=== PATIENT | male | born 1945 | race Caucasian/White ===

== ENCOUNTER 2022-10-11 07:07 | Day surgery (SDC) | payer OTHER, SELFPAY ==
--- NOTE | 2022-10-10 11:28 | P.CONAN_ITS ---
HPI - Anesthesia Eval Consult details Narrative: 77yo M for Colonoscopy [facility] Past Medical History Medical History (Updated 10/11/22 @ 07:23 by Patricia Orozco RN) Allergic rhinitis Diabetes Elevated cholesterol Glaucoma HTN (hypertension) Surgical History Surgical History (Updated 10/11/22 @ 07:23 by Patricia Orozco, RN) History of appendectomy History of surgery of head Hx of colonoscopy Hx of hemorrhoidectomy Social History Social History Patient Tobacco Use Status: Former Tobacco user Use of substances other than those prescribed or required for medical reasons: No Are you DNR?: No Advance Directives: No Advance Directives Information Provided: Yes Meds Allergies Allergy/AdvReac Type Severity Reaction Status Date / Time phenytoin [Dilantin] Allergy Unknown Dizziness Verified 10/11/22 07:22 gemfibrozil [From Lopid] Allergy Unknown Verified 10/10/22 07:06 glipizide Allergy Diarrhea Verified 10/11/22 07:22 simvastatin Allergy Unknown Verified 10/10/22 07:06 verapamil Allergy Unknown Verified 10/10/22 07:06 Home Medications Medication Instructions Recorded Confirmed Last Taken Type amlodipine PO DAILY 10/10/22 10/11/22 History aspirin 81 mg tablet 81 mg PO DAILY 10/10/22 10/10/22 Unknown History atenolol PO DAILY 10/10/22 10/11/22 History atorvastatin PO DAILY 10/10/22 Unknown History fluticasone propionate See Rx Instructions .Route .COMPLEX 10/10/22 10/10/22 Unknown History ibuprofen 200 mg tablet (Motrin IB) 200 mg PO Q6H PRN Pain 10/10/22 10/10/22 Unknown History latanoprost 0.005 % eye drops 1 drp ophthalmic (eye) DAILY 10/10/22 10/10/22 Unknown History (Xalatan) loratadine PO DAILY 10/10/22 Unknown History multivitamin 1 tab PO DAILY 10/10/22 10/10/22 Unknown History omeprazole PO DAILY 10/10/22 10/11/22 History sildenafil PO 10/10/22 Unknown History Exam Exam Date and Time: October 10, 2022 112 Assessment and Plan Assessment Anesthesia Assessment: Chart Reviewed
[2022-10-11 07:23] VITALS: BMI 25.2
[2022-10-11 07:40] VITALS: BP 150/77; PULSE 71; RESP 16; TEMP 36.7; O2SAT 97
[2022-10-11 07:48] LABS: Glucose, Whole Blood 128 mg/dL (60-115)
[2022-10-11] MEDS: Lactated Ringers 1,000 ML 100 ML IVCONT (07:59)
[2022-10-11 09:10] VITALS: BP 104/59; PULSE 75; RESP 16; TEMP 36.4; O2SAT 98
--- NOTE | 2022-10-11 09:14 | P.BOP_ITS ---
Brief Operative Note Date of Service: 10/11/22 Pre-op diagnosis: Heme + stool Post-op diagnosis: other (Diverticulosis) Procedure: Colonoscopy to the cecum and TI Surgeon: Angelito Clancy Anesthesia: MAC Was an Railroad Brakeman used for this Procedure?: No Estimated blood loss (mL): 0 Pathology: none sent Condition: stable Disposition: PACU
[2022-10-11 09:25] VITALS: BP 104/59; PULSE 73; RESP 18; O2SAT 98
--- NOTE | 2022-10-11 09:32 | OP_ITS ---
DATE OF SERVICE: 10/11/2022 SURGEON: Angelito Clancy MD INDICATIONS: The patient presents for evaluation of heme-positive stool and personal history of tubular adenoma of the colon. Full consent has been obtained from him for this, including risks of bleeding and perforation. PREOPERATIVE DIAGNOSIS: POSTOPERATIVE DIAGNOSIS: PROCEDURE PERFORMED: Colonoscopy to the cecum and terminal ileum. ESTIMATED BLOOD LOSS: COMPLICATIONS: ANESTHESIA: Monitored anesthesia care. ASSISTANTS: SPECIMENS: PREOPERATIVE DIAGNOSES: Heme-positive stool and personal history of colon polyps. POSTOPERATIVE DIAGNOSES: Heme-positive stool and personal history of colon polyps, diverticulosis, and internal hemorrhoids. DESCRIPTION OF PROCEDURE: The patient was placed in the left lateral decubitus position. The digital rectal exam revealed some small external hemorrhoids. The Olympus video pediatric colonoscope was entered into the rectum and advanced easily to the cecum. Once in the cecum, I did identify normal-appearing cecal pouch with appendiceal orifice and a normal-appearing ileocecal valve. The terminal ileum was cannulated and appeared normal. The scope was withdrawn back in the colon. The entire cecum and ileocecal valve appeared normal. The scope was slowly withdrawn assessing all mucosal surfaces carefully. Preparation was excellent. I did not visualize any sign of polyps, colitis, nor angiodysplasia. There was a mild amount of sigmoid diverticulosis. In the rectum, scope was retroflexed visualizing internal hemorrhoids, but no other pathology. The rectal mucosa appeared normal. The scope was straightened and withdrawn from the patient. He tolerated the procedure well and was returned to the recovery area in stable condition. IMPRESSION: 1. Diverticulosis. 2. Small internal and external hemorrhoids. PLAN: Given today's negative exam and his age, I do not think he would need any further screening colonoscopies. He will otherwise see me on a p.r.n. basis. MD LIVIA Miranda/FER / [phone] JUSTINO
[2022-10-11 09:43] VITALS: BP 113/64; PULSE 70; RESP 18; TEMP 36.4; O2SAT 98
== END 2022-10-11 10:49 | disposition home or self-care (01) ==
PROVIDERS: PCP Internal Medicine; Visit Provider Internal Medicine
PROC: 0DJD8ZZ Inspection of Lower Intestinal Tract, Via Natural or Artificial Opening Endoscopic (ICD-10-PCS; CPT 45378; principal; 2022-10-11 08:20)
DX: R19.5 Other fecal abnormalities (principal); K57.30 Diverticulosis of large intestine without perforation or abscess without bleeding; K64.8 Other hemorrhoids; Z86.010 Personal history of colon polyps; I10 Essential (primary) hypertension; E11.9 Type 2 diabetes mellitus without complications; Z79.82 Long term (current) use of aspirin; Z79.899 Other long term (current) drug therapy
CPT/HCPCS: 45378; 82947; J2250

== ENCOUNTER 2025-01-20 17:04 | Emergency (ER) | payer OTHER, SELFPAY ==
--- NOTE | ~2025-01-20 | XR_ITS ---
CLINICAL HISTORY: open wound. warmth. osteo? Two views of the left tibia and fibula. COMPARISON: None FINDINGS: Soft tissue edema overlying the left lower leg. Tibia and fibula appear intact. Visualized portions of the left knee and ankle appear intact. No lytic or sclerotic lesion. No periostitis. No cortical erosion. IMPRESSION: 1. Soft tissue edema overlying the left lower leg. No radiopaque foreign body. No radiographic evidence of osteomyelitis. This document has been electronically signed by: Ata Baltazar MD on 01/20/2025 18:21:20
--- NOTE | ~2025-01-20 | US_ITS ---
CLINICAL HISTORY: left leg swelling. DVT Venous duplex ultrasound left lower extremity COMPARISON: None provided. FINDINGS: The visualized deep veins are fully compressible with normal Doppler color flow and spectral tracings. No popliteal cyst. IMPRESSION: 1. Negative for left lower extremity deep vein thrombosis. This document has been electronically signed by: Ata Baltaazr MD on 01/20/2025 20:18:50
[2025-01-20 17:25] VITALS: BP 145/63; PULSE 95; RESP 20; TEMP 37; O2SAT 97; BMI 28.4
--- NOTE | 2025-01-20 17:37 | ED_ITS ---
HPI - General Adult General Chief complaint: Wound/Laceration Stated complaint: left leg swollen/wound weeping on the calf Time Seen by Provider: 01/20/25 22:27 Source: patient, family (daughter), RN notes reviewed and old records reviewed Mode of arrival: ambulatory Limitations: no limitations History of Present Illness ED Provider: Jose HPI narrative: 79-year-old male past medical history significant for diabetes, hypertension, hyperlipidemia presents for evaluation of left leg swelling. Patient reports that approximately 1 month ago he sustained a laceration to his left arndt on a tiger obdulia while working in his garden. He reports that it seemed to heal quite well About 10 days ago he had a routine [facility] and a nurse look at the area inside it seemed to be healing well. However since then ?the scab fell off. He reports that the left leg has been getting progressively more swollen with some purulent drainage weeping from it. He denies any fevers or chills He reports 0/10 pain at rest in 1/10 pain when he is walking or pushing in the area Related Data Home Medications ?Medication ?Instructions ?Recorded ?Confirmed amlodipine PO DAILY 10/10/22 aspirin 81 mg tablet 81 mg PO DAILY 10/10/2209/15 atenolol PO DAILY 10/10/22 atorvastatin PO DAILY 10/10/22 fluticasone propionate See Rx Instructions .Route . COMPLEX 10/10/22 10/10/22 ibuprofen 200 mg tablet (Motrin IB) 200 mg PO Q6H PRN Pain 10/10/22 10/10/22 latanoprost 0.005 % eye drops 1 drp ophthalmic (eye) D AILY 10/10/22 10/10/22 (Xalatan) loratadine PO DAILY 10/10/22 multivitamin 1 tab PO DAILY 10/10/2209/15 omeprazole PO DAILY 10/10/22 sildenafil PO 10/10/22 Previous Rx's ?Medication ?Instructions ?Recorded cephalexin 500 mg tablet 500 mg PO QID #28 tabs 01/20 doxycycline hyclate 100 mg tablet 100 mg PO BID #14 ta bs 01/20/25 Allergies Allergy/AdvReac Type Severity Reaction Status Date / Time phenytoin (Dilantin) Allergy Unknown Dizziness Verified 01/20/25 17:26 gemfibrozil (From Lopid) Allergy Unknown Verified 01/20/25 17:26 glipizide Allergy Diarrhea Verified 01/20/25 17:26 simvastatin Allergy Unknown Verified 01/20/25 17:26 verapamil Allergy Unknown Verified 01/20/25 17:26 Review of Systems 2 Constitutional: Constitutional: Denies body ache(s), Denies chills, Denies fever(s) and Denies headache(s) Eyes: Eyes: Denies blurry vision ENT: Denies vertigo, Denies dizziness and Denies headache(s) Cardiovascular: Cardiovascular: Denies chest pain and Denies dyspnea Respiratory: Respiratory: Denies cough and Denies dyspnea Gastrointestinal: Gastrointestinal: Denies abdominal pain Musculoskeletal: Musculoskeletal: Denies arthralgias, Denies joint swelling and Denies limited range of motion Integumentary/Breasts: Skin/Breast: Reports erythema, Reports skin swelling and Reports wounds Neurologic: Denies vertigo, Denies dizziness and Denies headache(s) [facility] Past Medical History Medical History (Updated 01/21/25 @ 00:00 by Raina Teresa) Glaucoma Allergic rhinitis Elevated cholesterol HTN (hypertension) Diabetes Surgical History (Updated 10/11/22 @ 07:23 by Patricia Orozco RN) History of appendectomy History of surgery of head Hx of hemorrhoidectomy Hx of colonoscopy Social History Social History Alcohol intake: current Alcohol intake frequency: a few times a week Alcohol type: beer Patient Tobacco Use Status: Former Tobacco user Smoked in Last 30 Days: No Use of substances other than those prescribed or required for medical reasons: No Advance Directives: No Advance Directives Information Provided: No Physical Exam ED Vital Signs: Vital Signs - 24 hr 01/20/25 22:57 01/20/25 23:53 Temperature 98.4 F 98.4 F Pulse Rate 81 81 Respiratory Rate 15 15 Blood Pressure 146/86 H 146/86 H Pulse Oximetry 98 98 Oxygen Delivery Method Room Air Room Air BMI result Body Mass Index 28.4 Const General: healthy appearing, comfortable, no acute distress, alert and awake Nutritional Appearance: well nourished Orientation/consciousness: patient oriented x3 HENMT Head: Yes normocephalic and Yes atraumatic Eyes Eyelids: Yes eyelids normal Conjunctivae: conjunctivae normal Sclerae: sclerae normal Corneas: corneas normal Pupils: Equal, round and reactive pupils present EOM: EOMs intact bilaterally Neck Neck: Yes full ROM Resp Effort & Inspection: normal respiratory effort, able to speak in complete sentences and not labored Skin Other: The patient has mild edema of the left lower extremity [id number] to about the ankle. There is a he is feeling, 3 cm linear laceration to the center of the arndt oriented vertically. There is some surrounding erythema with increased warmth to the area. No fluctuance General skin exam: elasticity normal Neuro General: patient oriented x3 Cranial nerves: Yes Equal, round and reactive pupils present and Yes Bilaterally intact EOM present Cognition (Neuro): normal cognition Extrem Other: Moving all extremities well without any obvious deformities Course Course Course Narrative: RME: 79 year male history of diabetes presents to ED for left leg swelling open wound with pus drainage warmth and tenderness for couple of weeks. Patient states he was gardening and cut his arndt in the garden since then infection absent getting worse. Patient presents to ED for evaluation. Positive for leg swelling, whooping wound and warmth. Labs x-ray ultrasound ordered Medications Administered Discontinued Medications Generic Name Dose Route Start Last Admin Trade Name Surjitq PRN Reason Stop Dose Admin Cephalexin HCl 500 mg 01/20/25 23:30 01/20/25 23:48 Cephalexin 500 Mg Capsule PO 01/20/25 23:31 500 mg ONCE ONE Administration Doxycycline Monohydrate 100 mg 01/20/25 23:30 01/20/25 23:48 Doxycycline Monohydrate 100 Mg Capsule PO 01/20/25 23:31 100 mg ONCE ONE Administration Medical Decision Making Medical Decision Making [facility] Narrative: 79-year-old male past medical history as above presents for evaluation of left leg redness, swelling and pain. He has not had any fevers. An ultrasound was ordered that is negative for DVT. The patient's labs are significant for a mild pancytopenia of unclear etiology. The patient denies any history of hepatitis, liver cirrhosis right HIV. I am not quite sure why he is pancytopenic but he reports a relatively recent colonoscopy that did not show any acute findings to explain his anemia. He does admit to taking ibuprofen 800 mg b.i.d.. He denies any black or bloody stool. For his cellulitis we will treat with doxycycline and cephalexin, he was given return precautions and he will repeat labs next week to determine the source of his pancytopenia. He has no evidence of sepsis, vital signs are stable Differential Diagnosis Differential Diagnoses: The differential diagnosis associated with the presentation includes Laceration Cellulitis DVT Thrombophlebitis Vasculitis Admission/Observation Consideration of admission/observation: Escalation of care including admission/observation considered Lab Data MDM Lab Attestation statement: I reviewed the patient's lab results. Mild pancytopenia, mild hyponatremia 133, no other significant electrolyte abnormalities warranting dimension. Random glucose of 244 01/20/25 17:46 01/20/25 17:46 Labs: Lab Results 01/20/25 Range/Units 17:46 WBC 2.9 L (4.8-10.8) X10*3/uL RBC 3.85 L (4.60-5.80) X10*6/uL Hgb 9.9 L (14.0-18.0) g/dl Hct 30.1 L (42.0-52.0) % MCV 78.2 L (80.0-98.0) fL MCH 25.7 L (27.0-33.0) pg MCHC 32.9 (31.0-36.0) g/dl RDW 15.4 (11.0-16.0) % Plt Count 154 L (160-400) X10*3/uL MPV 9.5 (9.4-12.4) fL Immature Gran % (Auto) 0.7 H (0.0-0.4) % Neut % (Auto) 43.0 L (45-73) % Lymph % (Auto) 32.4 (20-40) % [place] % (Auto) 10.2 (2-11) % Eos % (Auto) 13.0 H (0-4) % Baso % (Auto) 0.7 (0-2) % Lymph # (Auto) 1.0 L (1.2-4.9) X10*3/uL [place] # (Auto) 0.3 (0.1-1.2) X10*3/uL Eos # (Auto) 0.4 (0.0-0.4) X10*3/uL Baso # (Auto) 0.0 (0.0-0.2) X10*3/uL Abs Immat Gran (auto) 0.02 (0.00-0.03) X10*3/uL Absolute Neuts (auto) 1.3 L (2.0-8.3) x10*3/uL Absolute Nucleated RBC 0.000 (0.0-0.012) X10*3/uL Nucleated RBC % (auto) 0.0 (0.0-0.2) /100WBC ESR 33 H (0-15) MM/HR PT 11.7 (10.9-12.4) SEC INR 1.0 (0.9-1.1) APTT 27.2 (26.7-34.1) SEC Sodium 133 L (135-145) mmol/L Potassium 3.9 (3.3-5.1) mmol/L Chloride 105 (96-108) mmol/L Carbon Dioxide 19 L (22-29) mmol/L Anion Gap 13 (12-20) BUN 11 (9-16) mg/dL Creatinine 0.97 (0.5-1.4) mg/dL Estim Creat Clear Calc 70.7 Estimated GFR > 60 Random Glucose 244 H (60-115) mg/dL Calcium 8.5 (8.4-10.2) mg/dL Total Bilirubin 0.2 (0.0-1.0) mg/dL AST 22 (5-37) U/L ALT 29 (0-40) U/L Alkaline Phosphatase 73 (39-117) U/L C-Reactive Protein 0.91 H (< or = 0.50) mg/dL Total Protein 6.7 (6.5-8.0) g/dL Albumin 3.8 (3.5-5.0) g/dL Discharge Plan Discharge Clinical Impression: Cellulitis of left leg Patient Disposition: Home, Self-Care Instructions: Cellulitis (ED) Additional Instructions: Take both antibiotics as prescribed. You may continue to apply topical antibiotic pain I recommend that you call your primary doctor tomorrow to schedule follow up. You should also have repeat labs next week as you were pancytopenic This means that your white blood cells, your red blood cells, and your platelet counts were all slightly low Return for new or worsening symptoms, especially develop severe, or worsening pain or fevers Prescriptions: New cephalexin 500 mg tablet 500 mg PO QID Qty: 28 0RF doxycycline hyclate 100 mg tablet 100 mg PO BID Qty: 14 0RF No Action multivitamin Tablet 1 tab PO DAILY latanoprost [Xalatan] 0.005 % Drops 1 drp OPHTHALMIC (EYE) DAILY ibuprofen [Motrin IB] 200 mg Tablet 200 mg PO Q6H PRN (Reason: Pain) aspirin 81 mg Tablet 81 mg PO DAILY amlodipine PO DAILY atenolol PO DAILY atorvastatin PO DAILY fluticasone propionate See Rx Instructions .ROUTE .COMPLEX Rx Instructions: 1 SPRAY EACH NOSTRIL DAILY loratadine PO DAILY omeprazole PO DAILY sildenafil PO Interventions: ED Discharge Assessment Last Done: 01/20/25 23:53 Discharge Date/Time: 01/20/25 23:55 Print Language: Kyrgyz
[2025-01-20 17:54] LABS: MANUAL DIFF FLAG NO
[2025-01-20 17:56] LABS: Hematocrit 30.1 % (42.0-52.0); Hemoglobin 9.9 g/dl (14.0-18.0); Imm Gran Abs Auto 0.02 X10*3/uL (0.00-0.03); Imm Gran Pct Auto 0.7 % (0.0-0.4); Lymphocytes Absolute Auto 1.0 X10*3/uL (1.2-4.9); Mean Corpuscular HGB Conc 32.9 g/dl (31.0-36.0); Mean Corpuscular Hemoglobin 25.7 pg (27.0-33.0); Mean Corpuscular Volume 78.2 fL (80.0-98.0); NRBC Abs Auto 0.000 X10*3/uL (0.0-0.012); NRBC Pct Auto 0.0 /100WBC (0.0-0.2); Platelet Count 154 X10*3/uL (160-400); Red Blood Count 3.85 X10*6/uL (4.60-5.80); White Blood Count 2.9 X10*3/uL (4.8-10.8)
[2025-01-20 18:07] LABS: INTERNATIONAL NORM RATIO 1.0 (0.9-1.1); Prothrombin Time 11.7 SEC (10.9-12.4)
[2025-01-20 18:10] LABS: Partial Thromboplastin Time 27.2 SEC (26.7-34.1)
[2025-01-20 18:20] LABS: Alanine Aminotransferase 29 U/L (0-40); Albumin Level 3.8 g/dL (3.5-5.0); Alkaline Phosphatase 73 U/L (39-117); Anion Gap 13 (12-20); Aspartate Amino Transferase 22 U/L (5-37); Blood Urea Nitrogen 11 mg/dL (9-16); Calcium 8.5 mg/dL (8.4-10.2); Carbon Dioxide 19 mmol/L (22-29); Chloride 105 mmol/L (96-108); Creatinine Clr Calc Pharmacy 70.7; Estimated Glomerular Filt Rate > 60; Potassium 3.9 mmol/L (3.3-5.1); Sodium 133 mmol/L (135-145); Total Protein 6.7 g/dL (6.5-8.0)
--- OUTSIDE RECORDS SUMMARY | 2025-01-20 22:35 | XMS_ITS | Patient Health Record ---
Author Organization [facility] Address [address] [place] [address] Care Team Providers Care Licensed Practical Nurse Clinic Nurse Name Role Phone Yenny Joyce M.D. Primary Care Provider Angelito Guy [phone] Allergies Allergen (clinical drug ingredient) Drug/Non Drug Allergy documented on EMR Reaction Allergy Type Onset Date Status verapamil Verapamil Unknown Drug Allergy Active simvastatin Simvastatin Unknown Drug Allergy Act courtney glipizide Glipizide Unknown Drug Allergy Active gemfibrozil Lopid Unknown Drug Allergy Activ e phenytoin Dilantin Unknown Drug Allergy Active Reason For Referral No Information Medications Medication SIG (Take, Route, Frequency, Duration) Notes Start Date End Date Status ibuprofen Active Sildenafil Citrate A ctive Latanoprost Active Aspirin 81 Active Fluticasone Propionate Active Multivitamin Active Dulcolax (colon prep) 5 MG take at 3:00 p.m and 7:00p.m. Orally two tablets twice a day for one day for 1 day 08/20/2022 Active MiraLax (colon prep) 17 GM/SCOOP 1 238 GM bottle mixed with Gatorade or Crystal Light Orally begin at 5:00 p.m. the day before the procedure for 1 day 08/20/2022 Active atenolol Active amLODIPine Besylate Active Atorvastatin Calcium Active Atenolol Active Omeprazole Active Loratadine Allergy Relief Active Social History Tobacco Use: Social History Observation Description Date Details (start date - stop date) Never Smoker NA - NA Tobacco Use/Smoking Question Answer Notes Patient is a nonsmoker Alcohol Screen Question Answer Notes Did you have a drink contain ing alcohol in the past year? Yes How often did you have a dri nk containing alcohol in the past year? 2 to 3 times a week (3 points) How many drinks did you have on a typical day when you were drinking in the past year? 1 or 2 drinks (0 point) Points 3 Interpretation Negative Section Notes: Patient drinks beer--up to a 6-pack on weekends. Nonsmoker Problems Problem Type SNOMED Code ICD Code Onset Dates Problem Status W/U Status Risk Notes Problem 913955313 Colon cancer screening (Z12.11) Active confirmed Problem 219010971 History of adenomatous polyp of colon (Z86.010) Active confirmed Problem History of polyp of colon (situation) (784446542) Personal history of colonic polyps (Z86.010) Active confirmed Problem Diverticular disease of colon (158891814) Diverticulosis of large intestine without perforation or abscess without bleeding (K57.30) Active confirmed Problem 092095419597383 Preprocedural examination (Z01.818) Active confirmed Problem 28813158 Heme + stool (R19.5) Active confirmed Problem 807304871 Long-term use of aspirin therapy (Z79.82) Active confirmed Plan Of Treatment Future Test Test Name Order Date COLONOSCOPY 08/15/2022 Insurance Providers Payer Name Payer Address Payer Phone Subscriber Number Group Number Insured Name Patient Relationship to Insured Coverage Start Date Coverage End Date [facility] [employer] [address] [place] [id number] [employer] Self - patient is the insured Medical (General) History Medical History History ICD Code IDDM Hypertension Hyperlipidemia Allergic rhinitis Denies DE,CVA,Lung disease,renal disease Colonoscopies in 2008(with mike funes) and [address] Izaguirre. A tubular adenoma was removed in 2016 Surgical History Surgery Date(Month/Year) [place]ounded in [place]in [place] [facility]. He describes having a plate in his skull and some type of injury to his carotid artery on the right side 1967 Hemorrhoidectomy
[2025-01-20 22:57] VITALS: BP 146/86; PULSE 81; RESP 15; TEMP 36.9; O2SAT 98
--- NOTE | 2025-01-20 23:06 | PC.NURSE ---
pt a&ox4, respirations even and unlabored. pt reports x1 month ago he cut left calf on plants in garden, reports wound was healing but pt has noticed increased drainage, and pain around left ankle. pt denies pain but reports ankle is tender to touch. ss. awaitng ed doc
[2025-01-20 23:53] VITALS: BP 146/86; PULSE 81; RESP 15; TEMP 36.9; O2SAT 98
== END 2025-01-20 23:55 | disposition home or self-care (01) ==
PROVIDERS: Physician Assistant; Emergency Provider Emergency Medicine; PCP Internal Medicine
DX: L03.116 Cellulitis of left lower limb (principal); D61.818 Other pancytopenia; E11.9 Type 2 diabetes mellitus without complications; I10 Essential (primary) hypertension; Z88.8 Allergy status to other drugs, medicaments and biological substances
CPT/HCPCS: 36415; 73590; 80053; 85025; 85610; 85652; 85730; 86140; 93971; 99284

== ENCOUNTER → 2025-01-20 17:35 | Outpatient (BNV) | payer OTHER, SELFPAY | PROVIDERS: Visit Provider Radiology Diagnostic Radiology | DX: R22.42 Localized swelling, mass and lump, left lower limb (principal) | CPT/HCPCS: 73590; 93971 ==